=== PATIENT | male | born 1980 | race Two or more races ===

== ENCOUNTER 2020-06-29 12:08 | Emergency (ER) | payer SELFPAY ==
[~2020-06-29] VITALS: Ht 182.9 cm; Wt 82.0 kg
[2020-06-29 12:11] VITALS: BP 101/53
== END 2020-06-29 14:11 | disposition left against medical advice (07) ==
LOC: ER 12:08
DX: Z53.21 Procedure and treatment not carried out due to patient leaving prior to being seen by health care provider (principal); R10.9 Unspecified abdominal pain
CPT/HCPCS: 93005

== ENCOUNTER 2020-09-06 21:18 | Emergency (ER) | payer MEDICAID, OTHER ==
[~2020-09-06] VITALS: Ht 182.9 cm; Wt 81.0 kg
[2020-09-06 22:55] VITALS: BP 106/53
== END 2020-09-06 23:02 | disposition left against medical advice (07) ==
LOC: ER 21:18
DX: Z53.21 Procedure and treatment not carried out due to patient leaving prior to being seen by health care provider (principal)